=== PATIENT | female | born 1985 | race African-American/Black ===

== ENCOUNTER → 2016-05-16 | Outpatient (CLI) | payer BC ==
[~2016-05-16] MED LIST: PREN-96 PO
== END | disposition home or self-care (01) ==
LOC: LAB 14:39
PROVIDERS: ATTEND Internal Medicine
DX: R21 Rash and other nonspecific skin eruption (principal)
CPT/HCPCS: 86735; 86765; 86787

== ENCOUNTER 2016-07-21 20:20 | Emergency (ER) | payer BC ==
[~2016-07-21] VITALS: Ht 157.5 cm; Wt 67.1 kg
[2016-07-21] MEDS ORDERED: SODIUM CHLORIDE 0.9% 1,000 ML IVB ONE (21:11)
[2016-07-21] MEDS ORDERED: DIPHENOXYLATE W/ATROPINE 2.5 MG TAB PO ONE (21:15)
[2016-07-21 21:50] LABS: Basophils # (auto) 0 uL; Basophils % (auto) 0.4 % (0.0-2.0); Eosinophils # (auto) 0.1 uL; Eosinophils % (auto) 1.7 % (0.0-7.0); Hematocrit 38.3 % (36.0-46.0); Hemoglobin 12.7 g/dL (12.2-16.2); Lymphocytes # (auto) 1.1 uL; Lymphocytes % (auto) 23.4 % (10.0-50.0); Mean Corpuscular Hemoglobin 30.1 pg (28.0-32.0); Mean Corpuscular Hgb Conc. 33.2 g/dL (32.0-36.0); Mean Corpuscular Volume 90.8 fL (80.0-100.0); Mean Platelet Volume 9.6 fL (7.4-10.4); Monocytes # (auto) 0.8 uL; Monocytes % (auto) 16.7 % (0.0-12.0); Neutrophils # (auto) 2.7 uL; Neutrophils % (auto) 57.8 % (37.0-80.0); Platelet Count (auto) 185 10^3/uL (140-450); Red Cell Distribution Width 12.6 % (11.6-16.0); White Blood Cell 4.7 10^3/uL (4.4-10.8)
[2016-07-21 22:04] LABS: Albumin 3.6 g/dL (3.4-5.0); BUN/Creatinine Ratio 13.6; Bilirubin, Total 0.4 mg/dL (0.2-1.0); Calcium 8.2 mg/dL (8.5-10.1); Magnesium 2.1 mg/dL (1.6-2.6); Total Protein 7.3 g/dL (6.4-8.2)
[2016-07-21 22:18] LABS: Potassium 2.9 mmol/L (3.5-5.1)
[2016-07-21] MEDS ORDERED: POTASSIUM CHL 10% (20 MEQ/15ML) ORAL SOLN GT ONE (22:45)
[2016-07-21] MEDS ORDERED: DICYCLOMINE HCL 10 MG CAP PO ONE (23:30)
[2016-07-22 00:14] LABS: Urine Bilirubin Negative (Negative); Urine Ca Oxalate Crystal MANY (None Seen); Urine Color Yellow (Yellow); Urine Glucose Normal (Normal); Urine Ketone TRACE (Negative); Urine Mucus FEW (None Seen); Urine Nitrite Negative (Negative); Urine RBC 4 /hpf (0 - 4); Urine Squamous Epithelial Cell FEW /hpf (<5); Urine Urobilinogen Normal (Negative)
[2016-07-22 00:18] LABS: Urine Blood 1+ /uL (Negative)
[2016-07-22 00:44] VITALS: BP 91/42
== END 2016-07-22 00:55 | disposition home or self-care (01) ==
LOC: ER 20:29
DX: R19.7 Diarrhea, unspecified (principal); Z91.040 Latex allergy status; Z91.010 Allergy to peanuts
CPT/HCPCS: 36415; 80053; 81001; 81025; 82150; 83690; 83735; 85025; 96360; 99284; J0500; J7030